=== PATIENT | female | born 1925 ===

== ENCOUNTER → 2016-12-18 | Outpatient (CLI) | payer MEDICARE, OTHER ==
[~2016-12-18] MED LIST: ASPIRIN EC81 MG PO; CALAN SR GENER180 MG PO; CALCIUM CARBON600 MG PO; FLONASE 50 MCG/16 GM NOSE; NAPROSYN500 MG PO; PRILOSEC20 M1 PO; TRANDATE200 MG PO; ULTRAM50 MG PO; VITAMIN D-32000 UNI1 PO
== END | disposition disaster alternative care site (69) ==
LOC: GBCOE 10:31
DX: Z12.31 Encounter for screening mammogram for malignant neoplasm of breast (principal)
CPT/HCPCS: G0202